=== PATIENT | female | born 1975 | race Two or more races ===

== ENCOUNTER 2018-03-19 19:13 | Emergency (ER) | payer MEDICAID ==
[~2018-03-19] VITALS: Ht 165.1 cm; Wt 99.8 kg
[2018-03-19 19:26] VITALS: BP 118/65
== END 2018-03-19 20:20 | disposition left against medical advice (07) ==
LOC: ER 19:13
DX: R51 Headache (principal); Z53.21 Procedure and treatment not carried out due to patient leaving prior to being seen by health care provider
CPT/HCPCS: 82962; 93005